=== PATIENT | female | born 1985 | race African-American/Black ===

== ENCOUNTER 2016-07-19 20:49 | Emergency (ER) | payer MEDICAID ==
[~2016-07-19] VITALS: Ht 167.6 cm; Wt 96.0 kg
[2016-07-19 21:20] VITALS: BP 121/81
== END 2016-07-19 22:30 | disposition left against medical advice (07) ==
LOC: ER 20:49
DX: R10.10 Upper abdominal pain, unspecified (principal); Z53.21 Procedure and treatment not carried out due to patient leaving prior to being seen by health care provider